=== PATIENT | male | born 1985 | race Caucasian/White ===

== ENCOUNTER 2023-06-15 03:08 | Emergency (ER) | payer OTHER ==
[2023-06-15 03:16] VITALS: PULSE 76; RESP 18; TEMP 98.4; BMI 31.3
[2023-06-15] MEDS ORDERED: NITROGLYCERIN SUBLINGUAL 1/150 0.4 MG TAB SL ONE (03:31)
[2023-06-15] MEDS ORDERED: VALSARTAN 40 MG TABLET PO ONE (03:32)
[2023-06-15] MEDS ORDERED: VALSARTAN 80 MG TABLET ONE (03:44)
[2023-06-15 04:01] LABS: BASO % 0.8 % (0-2.0); HEMATOCRIT 38.8 % (35.4-49); HEMOGLOBIN 13.4 GM/dL (11.7-16.9); MCHC 34.5 g/dl (32.0-35.9); MEAN CELL VOLUME 89.8 fl (80-96); MONO % 7.5 % (3.8-10.2); NEUT % 66.7 % (42.8-82.8); PLATELET COUNT 258 10^3/uL (134-434); RBC 4.32 M/mm3 (4.00-5.60); RDW 13.1 % (11.9-15.9)
[2023-06-15 04:15] LABS: INR 1.03 (0.83-1.09); PROTHROMBIN TIME (PATIENT) 11.9 SEC (9.7-13.0)
[2023-06-15 04:20] LABS: POTASSIUM 3.9 mmol/L (3.5-5.1)
[2023-06-15 04:21] LABS: CALCIUM 8.8 mg/dL (8.5-10.1)
[2023-06-15 04:22] LABS: ALBUMIN 3.5 g/dl (3.4-5.0); BLOOD UREA NITROGEN 12.5 mg/dL (7-18)
[2023-06-15 04:25] LABS: CREATININE 1.2 mg/dL (0.55-1.3)
[2023-06-15 04:27] LABS: BILIRUBIN,TOTAL 0.2 mg/dL (0.2-1); TOT PROT 6.8 g/dl (6.4-8.2)
[2023-06-15] MEDS ORDERED: LACTULOSE 20 GM/30 ML UDC (FOR ORAL USE ONLY) PO ONE (04:54)
[2023-06-15] MEDS ORDERED: LACTULOSE 20 GM/30 ML UDC (FOR ORAL USE ONLY) ONE (05:06)
[2023-06-15] MEDS ORDERED: morphine CARPU-JECT 2 MG/1 ML DISP.SYRIN IVPUSH ONE (05:07)
[2023-06-15 07:24] VITALS: BP 176/111
[2023-06-15 08:53] LABS: URINE APPEARANCE CLEAR; URINE BILIRUBIN NEGATIVE (NEGATIVE); URINE COLOR YELLOW; URINE GLUCOSE (UA) NEGATIVE (NEGATIVE); URINE KETONE NEGATIVE (NEGATIVE); URINE LEUK ESTERASE NEGATIVE (NEGATIVE); URINE NITRITE NEGATIVE (NEGATIVE); URINE PROTEIN 30 (NEGATIVE); URINE UROBILINOGEN 0.2 mg/dL (0.2-1.0)
[2023-06-15 08:54] LABS: EPI CELLS 1.1 /uL (0-25.1); HYALINE CASTS 0.14 /uL (0-3.1); URINE RBC 107.2 /uL (0-23.9); URINE WBC 6.5 /uL (0-25.8)
== END 2023-06-15 09:33 | disposition home or self-care (01) ==
LOC: JER 03:08
PROC: 3E033GC Introduction of Other Therapeutic Substance into Peripheral Vein, Percutaneous Approach (ICD-10-PCS; principal; 2023-06-15)
DX: R10.32 Left lower quadrant pain (principal); I10 Essential (primary) hypertension
CPT/HCPCS: 36415; 74177-TC; 80053; 81003; 83690; 84484; 85025; 85610; 93005; 93010; 99285-25; Q9967

== ENCOUNTER 2023-07-14 10:46 | Emergency (ER) | payer OTHER ==
[2023-07-14 10:52] VITALS: BP 124/75; PULSE 71; RESP 18; TEMP 97; BMI 30.5
[2023-07-14] MEDS ORDERED: IBUPROFEN 600 MG TABLET (FP) PO ONE (13:44)
[2023-07-14] MEDS ORDERED: KETOROLAC TROMETHAMINE 30 MG/1 ML VIAL IM ONE (13:45)
[2023-07-14] MEDS ORDERED: ACETAMINOPHEN 500 MG TABLET (FP) PO ONE (13:45)
[2023-07-14] MEDS ORDERED: ACETAMINOPHEN 500 MG TABLET (FP) ONE (14:01)
[2023-07-14] MEDS ORDERED: KETOROLAC TROMETHAMINE 30 MG/1 ML VIAL ONE (14:01)
== END 2023-07-14 15:10 | disposition home or self-care (01) ==
LOC: JERFT 10:46
PROC: 3E0233Z Introduction of Anti-inflammatory into Muscle, Percutaneous Approach (ICD-10-PCS; principal; 2023-07-14)
DX: M25.562 Pain in left knee (principal); R22.42 Localized swelling, mass and lump, left lower limb
CPT/HCPCS: 73560-TC-LT-FY; 99284-25